=== PATIENT | male | born 1975 | race Two or more races ===

== ENCOUNTER 2017-07-19 10:12 | Emergency (ER) | payer OTHER ==
[2017-07-19 10:26] VITALS: BP 131/91; PULSE 87; RESP 16; TEMP 98.2; O2SAT 96
--- NOTE | 2017-07-19 10:32 | EDPHY ---
H & P Time Seen by Provider: 07/19/17 10:22 HPI/ROS: 42-year-old male presents complaining of right posterior heel pain that began several hours after playing flag football on . No injuries at the time. No fevers no chills no recent illnesses. Review of systems As per HPI General no fever no chills no weakness HEENT no eye pain no eye discharge. No eye redness, no sore throat Respiratory no cough, no shortness of breath Cardiac no chest pain, no peripheral edema GI no abdominal pain, no diarrhea, no constipation, no nausea, no vomiting no flank pain, no hematuria, no dysuria Musculoskeletal no myalgias, positive joint pain Heme no easy bruising, no easy bleeding Endo no polyuria, no polydipsia Skin no rashes, no pruritus Neuro no syncope, no dizziness, no headaches Psych is no suicidal ideation, no homicidal ideation Past Medical/Surgical History: [id number] diabetes Hyperlipidemia Hypertension Social History: Rare alcohol, no drug use Smoking Status: Never smoked Physical Exam: 42-year-old male Alert and oriented in no acute distress nontoxic appearance, afebrile Atraumatic normocephalic Neck no JVD Lungs clear to auscultation, no respiratory distress Heart regular rate and rhythm Extremities no cyanosis clubbing edema Right lower extremity Small amount of swelling and tenderness to palpation at right posterior heel Nonfluctuant No Achilles tendon tenderness Normal range of motion of foot and ankle Good capillary refill to all toes Good dorsalis pedis, good posterior tibialis Skin color normal, no increased warmth, not cold Constitutional: Initial Vital Signs Temperature (C) 36.8 C 07/19/17 10:22 Heart Rate 87 07/19/17 10:22 Respiratory Rate 16 07/19/17 10:22 Blood Pressure 131/91 H 07/19/17 10:22 O2 Sat (%) 96 07/19/17 10:22 Allergies/Adverse Reactions: latex Allergy (Verified 07/19/17 10:19) goji berries Allergy (Uncoded 07/19/17 10:19) Home Medications: Medication Instructions Recorded FLUoxetine 07/19/17 Glipizide 07/19/17 Lisinopril 07/19/17 Lovastatin 07/19/17 Medical Decision Making - Diagnostics Imaging Results: Imaging Impressions Calcaneus X-Ray 07/19/17 10:30 Impression: Calcification in the distal Achilles tendon suggesting calcific tendinitis. Ankle X-Ray 07/19/17 10:31 Impression: Calcaneal enthesophyte versus calcification of the distal Achilles tendon. ED Course/Re-evaluation: Patient seen and evaluated for pain in his posterior right heel following playing flag football on . X-ray No fracture Possible calcific tendinitis Impression Retrocalcaneal bursitis versus calcific tendinitis Achilles tendon Plan Adan wrap, crutches Rest, ice, compression, elevation, ibuprofen Follow up with primary care physician Differential Diagnosis: Calcific tendinitis, retrocalcaneal bursitis, ankle fracture, healed fracture, ankle sprain Departure - Departure Disposition: Home, Routine, Self-Care Clinical Impression: Retrocalcaneal bursitis (back of heel) Condition: Good Instructions: Ankle Bursitis (ED) Additional Instructions: Rest, ice, anti-inflammatory such as ibuprofen. Follow up with your primary care if not improving. This may take 1-2 weeks to resolve. Referrals: Quiana Xavier DO [Primary Care Provider] - As per Instructions
== END 2017-07-19 11:45 | disposition home or self-care (01) ==
LOC: CED 10:12
DX: M77.51 Other enthesopathy of right foot and ankle (principal); I10 Essential (primary) hypertension; E11.9 Type 2 diabetes mellitus without complications; Z91.040 Latex allergy status
CPT/HCPCS: 73600-PO; 73650-PO